=== PATIENT | female | born 2000 ===

== ENCOUNTER 2023-04-25 00:41 | Outpatient (CLI) | payer MEDICAID, SELFPAY ==
--- NOTE | 2023-04-25 15:59 | DI.RAD_ITS ---
Exam(s) XR ABDOMEN FLAT PLATE EXAM: XR ABDOMEN FLAT PLATE CLINICAL HISTORY: colonic transit,SITZ MARKER EXAM. TECHNIQUE: 2D digital imaging was performed. COMPARISON: No exams were available for comparison FINDINGS: There are no Sitz markers evident. This implies a either the patient did take them or that they have all passed.. Visualized lung bases are clear. Regional bones appear unremarkable. IMPRESSION: No Sitz markers seen. DATA REPOSITORY: RADIATION DOSE DELIVERED:
== END 2023-04-25 01:01 ==
LOC: DI 00:42
PROVIDERS: PCP Nurse Practitioner Family; Visit Provider Surgery
DX: K59.00 Constipation, unspecified (principal)
CPT/HCPCS: 74018